=== PATIENT | female | born 1985 | race Caucasian/White ===

== ENCOUNTER → 2020-02-04 14:59 | Outpatient (CLI) | payer OTHER, SELFPAY ==
[2020-02-04 15:31] LABS: Add Manual Diff / Slide Review NO; Basophils Absolute Auto 100 /uL (0-100); Basophils Percent Auto 0.6 % (0-2); Eosinophils Absolute Auto 200 /uL (0-450); Eosinophils Percent Auto 1.8 % (2-4); Hematocrit 37.9 % (36-46); Hemoglobin 13.1 g/dL (12.0-16.0); Lymphocytes Absolute Auto 2700 /uL (1100-4500); Lymphocytes Percent Auto 25.7 % (25-40); Mean Corpuscular HGB Conc 34.5 % (30-36); Mean Corpuscular Hemoglobin 30.1 PG (26-34); Mean Corpuscular Volume 87.4 fL (80-100); Monocytes Absolute Auto 600 /uL (0-900); Monocytes Percent Auto 5.3 % (3-14); Neutrophils Absolute Auto 7100 /uL (1500-7000); Neutrophils Percent Auto 66.6 % (50-75); Platelet Count 319 X10^3/uL (150-400); Red Blood Cell Count 4.34 X10^6/uL (4.0-5.2); Red Cell Distribution Width 12.2 % (11.6-14.8); White Blood Cell Count 10.6 X10^3/uL (4.5-11.0)
[2020-02-04 15:33] LABS: Appearance Urine UA CLEAR; Bilirubin Urine UA NEGATIVE (NEGATIVE); Color Urine UA YELLOW; Glucose Urine UA NEGATIVE (Negative); Ketones Urine UA NEGATIVE (NEGATIVE); Leukocyte Esterase Urine UA NEGATIVE (NEGATIVE); Nitrite Urine UA NEGATIVE (Negative); Occult Blood Urine UA NEGATIVE (Negative); Protein Urine UA NEGATIVE (Negative); Specific Gravity Urine UA <=1.005 (1.000-1.035); Urobilinogen Urine UA 0.2 E.U./dL (0.2)
[2020-02-04 17:02] LABS: Hepatitis B Surface Antigen NEGATIVE s/c (NEGATIVE); Rubella Antibody IgG 52.5 IU/mL (>15)
[2020-02-04 17:33] LABS: HIV 1 & 2 Ab/Ag 4th Gen Combo NEGATIVE (NEGATIVE); Hep C Virus Ab w/Reflex Quant NEGATIVE s/c (NEGATIVE)
[2020-02-05 05:37] LABS: RPR Screen Non Reactive (Non Reactive)
[2020-02-05 11:22] LABS: Varicella IgG Antibody 1068 index (Immune >165)
== END ==
PROVIDERS: PCP Specialist; Referring Provider Specialist; Visit Provider Specialist
DX: Z34.90 Encounter for supervision of normal pregnancy, unspecified, unspecified trimester (principal)
CPT/HCPCS: 36415; 80055; 81003; 86787; 86803; 86850; 86900; 86901; 87086; 87389

== ENCOUNTER → 2020-02-29 15:41 | Outpatient (CLI) | payer OTHER, SELFPAY ==
[2020-03-05 22:49] LABS: AFP, Serum 41.7 ng/mL (.); Calc Gestational Age Ultrasound (.); Estriol, Free 1.04 ng/mL (.); Inhibin A, Dimeric 182.89 pg/mL (.); Maternal Ethnicity Caucasian (.); Maternal Weight 151 lbs (.); Number of Fetuses No (.); OSBR Risk 1 IN 10000 (.); Results Report (.); Test Results *Screen Negative* (.); hCG, MoM 1.87 (.); hCG, Serum 53637 mIU/mL (.)
== END ==
PROVIDERS: PCP Specialist; Referring Provider Specialist; Visit Provider Specialist
DX: Z34.02 Encounter for supervision of normal first pregnancy, second trimester (principal); Z3A.18 18 weeks gestation of pregnancy
CPT/HCPCS: 36415; 82105; 82677; 84702; 86336

== ENCOUNTER → 2020-03-14 12:52 | Outpatient (CLI) | payer OTHER, SELFPAY ==
--- NOTE | 2020-03-14 12:53 | DI.US.S_ITS ---
PROCEDURE: US OB >= 14 WEEKS FETUS INDICATIONS: 20 WEEK ANATOMY OUTSIDE/PRIOR DATING DATA: Last menstrual period (LMP): 10/26/2019 LMP-based estimated date of delivery (SETH): 08/11/2020 First dating scan (date and location): Dr. Deleon, 12/24/2019 Estimated date of delivery (SETH) from first dating scan: 08/02/2020 TECHNIQUE: Real-time scanning was performed of the fetus, with image documentation and biometric measurements. COMPARISON: [facility], , OB >= 14 WEEKS FETUS, 02/29/2020, 15:32. [facility], , OB <= 14 WEEKS FETUS, 12/24/2019, 16:27. FINDINGS: General: A single live intrauterine gestation is present. Presentation: Transverse. Placenta: Placental position is anterior , without previa. Amniotic fluid index: 13.4 cm, normal range is 5-24 cm. heart rate: 160 beats per minute. Maternal cervical canal: 4.7 cm long. Normal lower limit is 2.5 cm. biometrics: Biparietal diameter: 4.6 cm equals 19 weeks 6 days Head circumference: 17.1 cm equals 19 weeks 5 days Abdominal circumference: 14.8 cm equals 20 weeks 0 days Femur length: 3.1 cm equals 19 weeks 3 days Estimated gestational age from initial scan: 19 weeks 6 days Composite gestational age from present scan: 19 weeks 5 days Estimated weight and percentile: 312 g, 40th percentile Measurement variability for biometric dating: +/- 7 days from 14 weeks to 15 weeks 6 days gestation, +/- 10 days from 16 weeks to 21 weeks 6 days gestation, +/- 2 weeks from 22 weeks to 27 weeks 6 days gestation, +/- 3 weeks for 28 weeks gestation or later. weight reference: 4500 g or EFW >90/95% is considered macrosomia or large for gestational age. EFW <10% is small for gestational age. EFW 5% or less is considered intra-uterine growth restriction. Anatomic survey: Neuro: Ventricles are non-dilated at less than 10 mm. Cisterna magna is normal at 3-11 mm. Cerebellum is normal in size and morphology. Nuchal skin fold: Normal at less than 6 mm between 14-21 weeks gestational age. Face: Nose and lips, facial profile are normal. Spine: No evidence for spina bifida. Heart: 4-chambered heart is present, with normal ventricular outflow tracts. Diaphragm: Diaphragm is intact. Stomach: Left-sided stomach is present. Kidneys: No hydronephrosis. Normal is less than 5 mm in 2nd trimester, less than 7 mm in 3rd trimester. Cord: 3-vessel cord has orthotopic insertion. Bladder: Normal in size. Extremities: All 4 extremities identified. IMPRESSION: A single live intrauterine is seen. No significant discrepancy is found between the estimated gestational age based on these images and the estimated gestational age based upon the given date of the last menstrual period. No anatomic abnormalities are identified. Dictated by: Ander Goel M.D. on 03/17/2020 at 13:46 Approved by: Ander Goel M.D. on 03/17/2020 at 13:48
== END ==
PROVIDERS: PCP Specialist; Referring Provider Specialist; Visit Provider Specialist
DX: Z34.82 Encounter for supervision of other normal pregnancy, second trimester (principal); Z3A.19 19 weeks gestation of pregnancy
CPT/HCPCS: 76811

== ENCOUNTER → 2020-04-24 07:37 | Outpatient (CLI) | payer OTHER, SELFPAY ==
[2020-04-24 09:18] LABS: Hematocrit 34.5 % (36-46); Hemoglobin 11.6 g/dL (12.0-16.0)
[2020-04-24 09:36] LABS: GTT (PREG) 1 Hour PP 50gm Dose 136 mg/dL (76-139)
== END ==
PROVIDERS: Referring Provider Specialist; Visit Provider Specialist
DX: Z34.82 Encounter for supervision of other normal pregnancy, second trimester (principal); Z3A.24 24 weeks gestation of pregnancy
CPT/HCPCS: 36415; 82950; 85014; 85018

== ENCOUNTER → 2020-07-09 16:18 | Outpatient (CLI) | payer OTHER, SELFPAY ==
[2020-07-10 11:02] LABS: Strep Grp B PCR NEG for Grp B Strep
== END ==
PROVIDERS: Visit Provider Specialist
DX: Z34.83 Encounter for supervision of other normal pregnancy, third trimester (principal); Z3A.36 36 weeks gestation of pregnancy
CPT/HCPCS: 87653

== ENCOUNTER 2020-07-20 08:41 | Inpatient (IN) | payer OTHER, SELFPAY ==
--- NOTE | 2020-07-20 09:49 | PM.OBHP.1 ---
OB HPI Date/Time Date of admission: 07/20/20 Date Patient Seen: 07/20/20 Time Patient Seen: 09:49 History of Present Condition Chief complaint: observation of labor : 2 Para: 1 Estimated Date of Delivery: 08/01/20 Estimated Gestational Age (weeks): 38 Narrative: Renu Sheth is a 35 year old female admitted with spontaneous rupture membranes History of Present care: good care, initiated at week # (8), number of visits (11) and pounds weight gain (36) Dating criteria: LMP confirmed by 1st trimester US Ultrasounds: normal mid trimester US Obstetrical complications: none Medical complications: none Preadmission Labs Blood type: A (+) positive -: Antibody screen: negative, GBS status: negative, HBsAG: negative, HIV: negative and RPR/VDLR: negative -: Chlamydia screen: not detected and Gonorrhea screen: not detected -: Rubella: immune and Varicella: immune HCAB: negative Quad screen: Normal 1 hr GTT: 136 Prior (ies) History: 10/27/2017 39 week gestation female 8 lb 2 oz 3rd degree tear Evaluation Evaluation Baseline heart rate: 135 Variability: Average (6-10) monitor accelerations: Present monitor decelerations: Absent Contraction Frequency (minutes): 5 Uterine Contraction Intensity: Moderate Category of Tracing: Reactive Status: Category l Non-invasive Membranes Rupture Test: positive PFSH Medical History (Updated 12/23/19 @ 21:11 by Laura Thornton) Chicken pox (~1994) Rectovaginal fistula (spontaneous vaginal delivery) (~10/27/17) Surgical History (Updated 12/23/19 @ 21:11 by Laura Thornton) Anesthesia [place] teeth removed (~2009) Family History (Updated 12/23/19 @ 21:12 by Laura Thornton) Mother No problems noted. Father No problems noted. Grandfather Heavy smoker Diabetes mellitus Hypertension Prostate cancer Kidney failure COPD (chronic obstructive pulmonary disease) Hyperlipidemia Grandmother Heavy smoker COPD (chronic obstructive pulmonary disease) Mitral valve prolapse Depression Grandfather Dementia Myocardial infarction Hypertension Grandmother Colon cancer Family/Other Bladder cancer Social History marital status: number of children: 1 household members: spouse and children pets and animals: No education level: college (BA Degree) occupational status: unemployed current occupational exposures/hazards: No special anel needs: No Smoking Status: Never smoker second hand exposure: No (grandparents smoked when she was a young girl) alcohol intake: former (pre- : rare use) substance use type: does not use Meds Home Medications and Allergies Home Medications Medication Instructions Recorded Confirmed Type prenat.vits,vimal,gyl-[id number] 1 tab PO DAILY 12/17/19 07/16/20 History Allergies Allergy/AdvReac Type Severity Reaction Status Date / Time Sulfa (Sulfonamide Allergy Intermediate Hives Verified 04/28/20 14:30 Antibiotics) Review of Systems Review of Systems Narrative: Patient had spontaneous rupture membranes clear fluid. Good movement. No headaches, scotomata, epigastric pain. ROS: Yes All systems reviewed with the patient and are negative except as otherwise documented Exam Vital Signs (past 8 hours): Blood pressure 130/73, temperature 37.2?,P 80 Narrative Exam Narrative: HEENT exam within normal limits. Lungs are clear to auscultation percussion. Heart is regular rate and rhythm no S3-S4 or murmurs. Abdomen is gravid and nontender. Extremities without edema and nontender. Assessment and Plan Assessment and Plan Assessment and Plan narrative: 38 week gestation with spontaneous rupture membranes. Patient beginning to have contractions. If necessary will start Pitocin. Anticipate vaginal delivery. Patient requests epidural when necessary. Time Spent with Patient Total time spent with greater than 50% in coordination of care (as documented) at patient's floor/unit and/or counseling patient:: less than 15 minutes
[2020-07-20 10:18] VITALS: BP 130/73
[2020-07-20 10:33] LABS: Add Manual Diff / Slide Review NO; Basophils Absolute Auto 100 /uL (0-100); Basophils Percent Auto 0.5 % (0-2); Eosinophils Absolute Auto 100 /uL (0-450); Eosinophils Percent Auto 0.9 % (2-4); Hematocrit 38.2 % (36-46); Hemoglobin 12.4 g/dL (12.0-16.0); Lymphocytes Absolute Auto 2500 /uL (1100-4500); Lymphocytes Percent Auto 19.1 % (25-40); Mean Corpuscular HGB Conc 32.5 % (30-36); Mean Corpuscular Hemoglobin 28.8 PG (26-34); Mean Corpuscular Volume 88.6 fL (80-100); Monocytes Absolute Auto 700 /uL (0-900); Monocytes Percent Auto 5.1 % (3-14); Neutrophils Absolute Auto 9600 /uL (1500-7000); Neutrophils Percent Auto 74.4 % (50-75); Platelet Count 276 X10^3/uL (150-400); Red Blood Cell Count 4.31 X10^6/uL (4.0-5.2); Red Cell Distribution Width 12.9 % (11.6-14.8); White Blood Cell Count 12.9 X10^3/uL (4.5-11.0)
[2020-07-20 10:41] LABS: COVID19 -Nasal RAPID Negative (Negative)
[2020-07-20] MEDS: LACTATED RINGERS 1,000 ML 100 ML IV ×2 (11:00→16:03)
--- NOTE | 2020-07-20 15:08 | PM.AN.REGBLK ---
Regional Block Pre-procedure Procedure: Continuous Lumbar Epidural for L&D Attending OB provider: Arely Deleon PMH/ROS narrative: term labor, SROM, no complications Hx: No personal or family history of anesthesia problems. ASA Class: II Labs: Hct 38.2 % (36-46) 07/20/20 10:15 Plt Count 276 X10^3/uL (150-400) 07/20/20 10:15 Medications: Current Medications Generic Name Dose Route Start Last Admin Trade Name Freq PRN Reason Stop Dose Admin Calcium Carbonate 1,000 mg 07/20/20 10:17 Calcium Carbonate 500 Mg Tab PO Q2HR PRN Dyspepsia Diphenhydramine HCl 25 mg 07/20/20 14:18 Diphenhydramine 50 Mg/Ml Vial IV Q10M PRN Pruritis Fentanyl 100 mcg 07/20/20 10:17 Fentanyl 100 Mcg/2 Ml Inj IV Q1H PRN Pain, Severe (7-10) Lactated Ringer's 1,000 mls @ 100 mls/hr 07/20/20 10:30 07/20/20 11:00 Lactated Ringers IV 100 mls/hr CONT DEMETRI Administration FENT 2MCG/ML BUPIV 0.125% EPI 200 mcg in 100 mls @ 6 mls/hr 07/20/20 14:30 Fentanyl/Bupiv/Ns 2mcg/Ml - 0.125% EPIDURAL CONT DEMETRI Naloxone HCl 0.2 mg 07/20/20 10:17 Naloxone 0.4 Mg/Ml Vial IV Q2MIN PRN Opiate Reversal Ondansetron HCl 4 mg 07/20/20 10:17 Ondansetron 4 Mg/2 Ml Inj IV Q4HR PRN Nausea And Vomiting Allergies: Allergies Allergy/AdvReac Type Severity Reaction Status Date / Time Sulfa (Sulfonamide Allergy Intermediate Hives Verified 04/28/20 14:30 Antibiotics) Procedure Insertion date: 07/20/20 Insertion time: 15:00 Prep/Local: betadine x3 Interspace: L2-3, then L3-4 after positive test dose reaction Patient position: sitting Needle: 18 gauge Hustead (CSE: 27g Pencan through Hustead, clear CSF, 1mL 0.25% bupiv) Loss of resistance with: saline VIRGILIO at (cm): 5 Catheter placed at SKIN (cm): 10 Catheter in SPACE (cm): 5 Insertion: No CSF, Yes Blood, No Paresthesia with insertion, No Paresthesia with injection and Yes Test dose reaction Initial Medications TEST DOSE time: 14:40 TEST DOSE: 1.5% lidocaine with epinephrine 1:200k (mL): 3 BOLUS DOSE time: 15:07 BOLUS DOSE (mL): 3 BOLUS DOSE med: other (infusate) Infusion INFUSION: 0.125% bupivacaine and with fentanyl 2 mcg/mL Initial rate (mL/hr): 6 Subsequent interventions: L2-3, positive test dose at 10cm, pulled catheter to 9cm, positive blood on aspiration, positive test dose. Pulled catheter, repeated at L3-4. Negative aspiration, no blood, negative test dose. Post-procedure Anesthesia time START: 14:27 Anesthesia time END: 16:18 Post-procedure Anesthesia Assessment: Yes CV function: HR/BP stable, Yes Resp function: RR/sat/airway adequate, Yes Post-op hydration adequate, Yes Pain control adequate, Yes Nausea & vomiting absent, Yes Mental status appropriate and No Anesthesia complications
--- NOTE | 2020-07-20 16:57 | PM.OBPRVD ---
Labor & Delivery Delivery date: 07/20/20 Delivery monitor: external FHT and external uterine Route of delivery: vacuum extraction Indication for instrumentation: nonreassuring FHR tracing (Repetitive decelerations to the 60s) L&D Laceration Description: Perineal - 2nd Degree Delivery repair: vicryl (2 0) and chromic (3 0) Estimated blood loss (mL): 150 Anesthesia Type: Epidural Narrative: Patient arrived on Labor and delivery after spontaneous rupture membranes. She progressed into active labor. She received an epidural catheter for pain control. With pushing the fetus began having 2 minutes decelerations to the 60s with some intermittent contractions. Decision was made to assist delivery with the vacuum extractor. The vacuum was placed and with 1 push the baby was delivered in the ROP position over an intact perineum. The infant was placed on maternal abdomen. After the cord stopped pulsating the cord was clamped, cut, and cord bloods obtained. The placenta delivered spontaneously, intact, with 3 vessels. Patient originally had a first-degree midline tear. This was cut to a second-degree to allow repair of her prior 3rd degree tear that was felt to possibly have a fistula before but probably was just a poor perineal body. There was an obvious old tear in the rectal sphincter. This was reattached with interrupted 2-0 Vicryl sutures at posterior, top and anterior. The perineal body was built up with 2 0 Vicryl sutures. The vaginal mucosa and the skin was closed with 3-0 chromic suture. Both mother doing well. Baby 1: gender: Female Presentation: vertex Position: Right Occiput Posterior Placenta delivery description: Spontaneous Cord Vessel Description: 3 Vessels score (1 min): 8 score (5 min): 9 Plan for aftercare: Routine post care
[2020-07-20] MEDS: LANOLIN OINT 7 GM 1 APPLIC TOP (18:47)
[2020-07-20] MEDS: DERMOPLAST SPRAY 20% 60 ML 1 SPRAY TOP (18:48)
[2020-07-20] MEDS: OXYTOCIN 10 UNIT/ML VIAL 20 UNIT (19:15)
[2020-07-20] MEDS: HYDROCODONE/ACET 5/325 TABLET 2 TAB PO (20:32)
[2020-07-20] MEDS: IBUPROFEN 600 MG TABLET PO (20:33)
[2020-07-21] MEDS: IBUPROFEN 600 MG TABLET PO ×2 (02:35→08:47)
[2020-07-21] MEDS: HYDROCODONE/ACET 5/325 TABLET 2 TAB PO ×2 (02:36→07:40)
[2020-07-21 06:00] LABS: Add Manual Diff / Slide Review NO; Basophils Absolute Auto 100 /uL (0-100); Basophils Percent Auto 0.4 % (0-2); Eosinophils Absolute Auto 200 /uL (0-450); Eosinophils Percent Auto 1.2 % (2-4); Hematocrit 35.2 % (36-46); Hemoglobin 11.7 g/dL (12.0-16.0); Lymphocytes Absolute Auto 2900 /uL (1100-4500); Lymphocytes Percent Auto 20.8 % (25-40); Mean Corpuscular HGB Conc 33.3 % (30-36); Mean Corpuscular Hemoglobin 29.4 PG (26-34); Mean Corpuscular Volume 88.5 fL (80-100); Monocytes Absolute Auto 900 /uL (0-900); Monocytes Percent Auto 6.3 % (3-14); Neutrophils Absolute Auto 9900 /uL (1500-7000); Neutrophils Percent Auto 71.3 % (50-75); Platelet Count 238 X10^3/uL (150-400); Red Blood Cell Count 3.98 X10^6/uL (4.0-5.2); Red Cell Distribution Width 12.8 % (11.6-14.8); White Blood Cell Count 13.9 X10^3/uL (4.5-11.0)
[2020-07-21] MEDS: DOCUSATE 100 MG CAPSULE PO (07:39)
--- NOTE | 2020-07-21 08:14 | P.DS_ITS ---
Discharge Providers Provider Date of admission: 07/20/20 08:41 Discharge Date: 07/21/20 Primary care physician: Doctor Jameson MD Consults: 07/20/20 10:17 Consult to Anesthesiology Urgent Comment: Consulting Provider: Anesthesiologist Reason for consultation: Epidural Has provider been notified: No 07/21/20 16:55 Consult to Glass Production Machine Operator Routine Comment: Discharge provider: Arely Deleon MD Summary Hospital Course Date Patient Seen: 07/21/20 Time Patient Seen: 08:00 Procedures: Epidural catheter, vacuum assisted vaginal delivery, 2nd degree repa ir with repair of prior rectal sphincter tear Hospital Course: Patient arrived on Labor and delivery with spontaneous rupture membranes. She went into active labor. She received an epidural catheter for pain control. The baby had some repetitive decelerations with pushing so decision was made to assist with the vacuum. Patient had a first-degree tear but due to concerns after her prior delivery with a third-degree tear and possible fistula the first-degree tear was enlarged to accommodate repair of the prior but partially torn rectal sphincter. No obvious fistula found. Both female and her are doing well. Patient is urinating and ambulating well. Pain is under control. No headaches, scotomata have a epigastric pain. Peripartum Data Infant Delivery Method: Assisted Delivery (Vacuum assisted vaginal delivery) Laceration Description: Perineal - 2nd Degree Procedures: Epidural catheter, vacuum assisted vaginal delivery, repair tear. complications: none 1: Gender: Female Disposition of : home Discharge Diagnosis (1) Vacuum-assisted vaginal delivery: Status: Acute Status at Discharge Cognitive/behavioral status at discharge: oriented Functional status at discharge: independent ambulation Overall status at discharge: patient is progressing back to baseline Time Spent with Patient Time attestation: Total time spent providing and/or coordinating discharge services: Time spent: Less than 30 minutes Objective Labs Result Diagrams: 07/21/20 05:44 Labs: Laboratory Results - last 24 hr 07/20/20 07/20/20 07/20/20 09:00 10:15 10:15 WBC 12.9 H RBC 4.31 Hgb 12.4 Hct 38.2 MCV 88.6 MCH 28.8 MCHC 32.5 RDW 12.9 Plt Count 276 Neut % (Auto) 74.4 Lymph % (Auto) 19.1 L [place] % (Auto) 5.1 Eos % (Auto) 0.9 L Baso % (Auto) 0.5 Neut # (Auto) 9600 H Lymph # (Auto) 2500 [place] # (Auto) 700 Eos # (Auto) 100 Baso # (Auto) 100 SARS-CoV-2 (PCR) Negative Blood Type A Positive Antibody Screen Negative 07/21/20 05:44 WBC 13.9 H RBC 3.98 L Hgb 11.7 L Hct 35.2 L MCV 88.5 MCH 29.4 MCHC 33.3 RDW 12.8 Plt Count 238 Neut % (Auto) 71.3 Lymph % (Auto) 20.8 L [place] % (Auto) 6.3 Eos % (Auto) 1.2 L Baso % (Auto) 0.4 Neut # (Auto) 9900 H Lymph # (Auto) 2900 [place] # (Auto) 900 Eos # (Auto) 200 Baso # (Auto) 100 SARS-CoV-2 (PCR) Blood Type Antibody Screen Exam Vital Signs (past 8 hours): Blood pressure 118/69, pulse 89, temperature 98.7? Narrative Exam Narrative: Abdomen is soft, nontender. Uterus is firm, at U, nontender. Repair is intact. Mild lochia. Extremities without edema and nontender. Patient's blood type is A positive, she is rubella immune, she received Tdap in the 3rd trimester. Discharge Plan Discharge Plan Patient Disposition: Home Discharge orders & Medications Prescriptions: New ibuprofen 600 mg Tablet 600 mg PO Q6HR PRN (Reason: Pain, Mild (1-3)) Qty: 20 RF: 0 Continued prenat.vits,vimal,poo-zuut-hmeth Tablet 1 tab PO DAILY RF: 0 Follow up/Referrals: Arely Deleon MD [Physician] - 1 Month (Appointment with on , July at 9:00am for post check.) Doctor Barba MD [Primary Care Provider] - Diet/Activity/Treatments Diet: Regular Activity: Nothing in vagina for 4 weeks Skin/Wound/Dressing Care Report to your healthcare provider any signs of infection, such as:: chills, fever and increased pain Visit Report/Discharge Packet Instructions: DI for Labor and Delivery, Vaginal Discharge Data Primary Care Provider: Doctor Jameson
[2020-07-21 09:33] VITALS: BP 118/69; PULSE 89; RESP 16; TEMP 37.1
[2020-07-21] MEDS: MAGNESIUM HYDROXIDE 30 ML UDC PO (12:13)
== END 2020-07-21 12:41 | disposition home or self-care (01) | DRG 807 ==
PROVIDERS: Admitting Provider Specialist; Referring Provider Specialist; Visit Provider Specialist
DX: O42.02 Full-term premature rupture of membranes, onset of labor within 24 hours of rupture (principal); Z37.0 Single live birth; O76 Abnormality in fetal heart rate and rhythm complicating labor and delivery; Z3A.38 38 weeks gestation of pregnancy; O70.1 Second degree perineal laceration during delivery; Z20.822 Contact with and (suspected) exposure to COVID-19
CPT/HCPCS: 01967; 36415; 59050; 59400; 84112; 85025; 86850; 86900; 86901; 87635; C9803; G0379; J2590